=== PATIENT | male | born 1925 | race Caucasian/White ===

== ENCOUNTER → 2016-10-12 | Outpatient (CLI) | payer MEDICARE, BC ==
[~2016-10-12] MED LIST: ALLEGRA 180MG180 MG PO; AMLODIPINE BES2.5 MG PO; AMLODIPINE BESY10 MG PO; APRODINE 60 MG-1 TAB PO; ASPI81CT18 PO; ASPIR-LOW81 MG; ASPIR-LOW81 MG PO; ASPIRIN E.C. 8181 MG PO; ATARAX 25MG25 MG/TAB PO; AVODART0.5 MG PO; CARDURA4 MG PO; CLONAZEPAM0.5 M1 PO; CLONAZEPAM0.5 MG PO; DOXAZOCIN; DOXAZOSIN4 MG PO; EPA FISH OIL1000 MG PO; FEXOFENADINE180 MG PO; FISH OIL CONC1000 MG PO; GLUCOSAMINE & C1 CAP PO; GLUCOSAMINE SULFATE; IBU-TAB800 MG PO; IBU800 M1 PO; KLONOPIN 0.5MG0.5 MG PO; MECLICOT25 MG PO; MECLIZINE25 MG PO; METOPROLOL25 MG PO; METOPROLOL50 MG PO; MIRALAX 17GM PK1 PKT PO; NORVASC2.5 MG PO; PEPCID COMPLETE1 CTB PO; PRADAXA PO; PRAVACHOL20 MG PO; PRILOSEC 20MG20 MG PO; PRILOSEC20 MG PO; PROSCAR 5MG5 MG PO; QUALAQUIN324 MG PO; QUININE SULFAT324 MG PO; REQUIP 1MG T1 MG/TAB; SIMVASTATIN10 MG PO; TOPROL XL 50MG50 MG PO; TOPROL XL50 MG PO; VESICARE5 MG PO; ZOCOR 20MG20 MG PO; ZOCOR 40MG40 MG PO; ZOCOR10 MG PO; [UNRECOGNIZED DRUG - OTHER]
== END ==
LOC: COL.CARD 09:00
DX: I10 Essential (primary) hypertension (principal)